=== PATIENT | female | born 1985 | race Caucasian/White ===

== ENCOUNTER 2021-05-12 16:23 | Emergency (ER) | payer SELFPAY ==
[~2021-05-12] VITALS: Ht 162.6 cm; Wt 90.7 kg
[~2021-05-12 16:23] MED LIST: PRENATAL VITS
[2021-05-12 17:35] VITALS: BP 144/73
[2021-05-15 12:12] LABS: Hepatitis B Surface Antigen Negative (Negative)
[2021-05-15 12:29] LABS: Hepatitis B Surface Antibody Positive
== END 2021-05-12 18:08 | disposition home or self-care (01) ==
LOC: ER 16:23
DX: S61.432A Puncture wound without foreign body of left hand, initial encounter (principal); W27.3XXA Contact with needle (sewing), initial encounter; Y93.89 Activity, other specified; Y92.89 Other specified places as the place of occurrence of the external cause; Y99.8 Other external cause status
CPT/HCPCS: 36415; 86703; 86706; 86803; 87340

== ENCOUNTER → 2021-06-19 | Outpatient (CLI) | payer OTHER ==
[2021-06-19 14:49] LABS: Hepatitis B Surface Antibody Positive (Negative)
== END | disposition home or self-care (01) ==
LOC: LAB 13:28
PROVIDERS: ATTEND Nurse Practitioner
DX: Z77.21 Contact with and (suspected) exposure to potentially hazardous body fluids (principal)
CPT/HCPCS: 36415; 86703; 86706; 86803; 87340

== ENCOUNTER → 2021-08-02 | Outpatient (CLI) | payer OTHER ==
[2021-08-02 16:27] LABS: Hepatitis B Surface Antibody Negative (Negative)
== END | disposition home or self-care (01) ==
LOC: LAB 14:09
PROVIDERS: ATTEND Nurse Practitioner
DX: Z77.21 Contact with and (suspected) exposure to potentially hazardous body fluids (principal)
CPT/HCPCS: 36415; 86703; 86706; 86803; 87340